=== PATIENT | male | born 1950 | race Caucasian/White ===

== ENCOUNTER 2022-01-22 09:51 | Day surgery (SDC) | payer MEDICARE ==
[2021-12-15 12:15] VITALS: BMI 26.9
[2022-01-22] MEDS ORDERED: Midazolam HCl 2 mg/2 ml Vial ONE (11:43)
[2022-01-22] MEDS ORDERED: fentaNYL Citrate/PF 100 MCG/2 ML SYRINGE ONE (11:44)
[2022-01-22] MEDS ORDERED: PROPOFOL 200 MG/20 ML VIAL ONE (12:00)
[2022-01-22] MEDS ORDERED: ePHEDrine 50 MG/ML VIAL ONE (12:00)
[2022-01-22] MEDS ORDERED: PHENYLEPHRINE-NS 100 MCG/ML 10 ML SYRINGE ONE (12:00)
[2022-01-22] MEDS ORDERED: Ondansetron PF 4 MG/2 ML Vial ONE (12:00)
== END 2022-01-22 14:06 | disposition home or self-care (01) ==
LOC: MRI 09:51
PROVIDERS: ATTEND Neurological Surgery
DX: M50.11 Cervical disc disorder with radiculopathy, high cervical region (principal); M48.02 Spinal stenosis, cervical region; M48.03 Spinal stenosis, cervicothoracic region; M47.26 Other spondylosis with radiculopathy, lumbar region; M51.16 Intervertebral disc disorders with radiculopathy, lumbar region; M48.061 Spinal stenosis, lumbar region without neurogenic claudication; M47.815 Spondylosis without myelopathy or radiculopathy, thoracolumbar region; M47.817 Spondylosis without myelopathy or radiculopathy, lumbosacral region; G47.33 Obstructive sleep apnea (adult) (pediatric); I10 Essential (primary) hypertension; Z79.899 Other long term (current) drug therapy
CPT/HCPCS: 72141; 72148; J2250; J2405; J2704; J3490

== ENCOUNTER 2022-04-03 12:43 | Outpatient (CLI) | payer MEDICARE | END 2022-04-03 12:44 | disposition home or self-care (01) | LOC: TBSIIMAG 12:43 | PROVIDERS: ATTEND Neurological Surgery | DX: M47.26 Other spondylosis with radiculopathy, lumbar region (principal); M50.20 Other cervical disc displacement, unspecified cervical region; M47.812 Spondylosis without myelopathy or radiculopathy, cervical region; Z98.890 Other specified postprocedural states | CPT/HCPCS: 72050; 72110 ==

== ENCOUNTER 2022-05-10 15:16 | Outpatient (CLI) | payer MEDICARE ==
[2022-05-10 15:55] LABS: Hemoglobin 17.4 g/dL (13.5-17.5); Mean Corpuscular HGB CONC 32.5 g/dL (32.0-36.0); Mean Corpuscular Hemoglobin 28.9 pg (27.0-33.0); Mean Platelet Volume 10.6 fl (7.4-10.4); Platelet Count 201 10x3/uL (150-450); RBC Distribution Width 17.8 % (11.5-14.5); Red Blood Cell (RBC) Count 6.02 10x6/uL (4.32-5.72); White Blood Cell (WBC) Count 7.6 10x3/uL (3.5-10.5)
[2022-05-10 16:03] LABS: INR-International Normal Ratio 0.9; PTT 26.6 sec (22.0-33.0); Prothrombin Time 10.1 sec (9.5-12.1)
== END 2022-05-10 15:17 | disposition home or self-care (01) ==
LOC: LABBT 15:16
PROVIDERS: ATTEND Neurological Surgery
DX: Z01.818 Encounter for other preprocedural examination (principal); G95.89 Other specified diseases of spinal cord; M50.01 Cervical disc disorder with myelopathy, high cervical region; M50.021 Cervical disc disorder at C4-C5 level with myelopathy; M50.022 Cervical disc disorder at C5-C6 level with myelopathy
CPT/HCPCS: 85027; 85610; 85730; 93005; 93010

== ENCOUNTER 2022-05-10 15:30 | Inpatient (IN) | payer MEDICARE ==
[2022-05-14 12:23] VITALS: BMI 26.5
[2022-05-17] MEDS ORDERED: Acetaminophen 325 MG TAB PO PRN (06:09)
[2022-05-17] MEDS ORDERED: Acetaminophen/Codeine 30-300mg Tablet PO PRN (06:09)
[2022-05-17] MEDS ORDERED: diphenhydrAMINE 50 MG/ML VIAL IVP PRN (06:09)
[2022-05-17] MEDS ORDERED: Prochlorperazine 10 MG/2 ML VIAL IM PRN (06:09)
[2022-05-17] MEDS ORDERED: Bisacodyl 10 MG SUPP PR PRN (06:09)
[2022-05-17] MEDS ORDERED: Milk Of Magnesia 30 ML UDCUP PO PRN (06:09)
[2022-05-17] MEDS ORDERED: HYDROcodone/Acetaminophen 7.5/325 mg Tablet PO PRN (06:09)
[2022-05-17] MEDS ORDERED: Mag-Al 1200 mg/1200 mg/30 ML UDCUP PO PRN (06:09)
[2022-05-17] MEDS ORDERED: Thrombin 5000 UNITS/5 ML VIAL ONE (06:11)
[2022-05-17] MEDS ORDERED: Neomycin-Polymyxin 1 ML AMP ONE (06:11)
[2022-05-17] MEDS ORDERED: Chloraseptic Spray 180 ml Bottle PO PRN (06:14)
[2022-05-17] MEDS ORDERED: tiZANidine HCl 4 MG TAB PO PRN (06:14)
[2022-05-17] MEDS ORDERED: fentaNYL PF 100 MCG/2 ML SYRINGE ONE (06:31)
[2022-05-17] MEDS ORDERED: CEFAZOLIN 2 GM VIAL ONE (06:50)
[2022-05-17] MEDS ORDERED: Sodium Chloride 0.9% 100 ML ONE (06:50)
[2022-05-17 06:59] LABS: SARS-CoV-2 NAA Rapid Test Not Detected (NotDetected)
[2022-05-17] MEDS ORDERED: ePHEDrine 50 MG/ML VIAL ONE (07:12)
[2022-05-17] MEDS ORDERED: PHENYLEPHRINE-NS 100 MCG/ML 10 ML SYRINGE ONE (07:12)
[2022-05-17] MEDS ORDERED: Glycopyrrolate 0.2 MG/ML 5 ML SYRINGE ONE (07:12)
[2022-05-17] MEDS ORDERED: PROPOFOL 200 MG/20 ML VIAL ONE (07:12)
[2022-05-17] MEDS ORDERED: Dexamethasone 20 MG/5 ML VIAL ONE (07:12)
[2022-05-17] MEDS ORDERED: Lidocaine 1% PF 5 ML VIAL ONE (07:12)
[2022-05-17] MEDS ORDERED: Rocuronium Bromide 10 MG/ML (10ML VIAL) ONE (07:12)
[2022-05-17] MEDS ORDERED: NEOSTIGMINE 3 MG/3 ML SYR 3 MG/3 ML SYRINGE ONE (07:12)
[2022-05-17] MEDS ORDERED: Ondansetron PF 4 MG/2 ML Vial ONE (07:12)
[2022-05-17] MEDS ORDERED: HYDROmorphone 0.5 MG/0.5 ML SYRINGE ONE ×2 (12:37→13:30)
[2022-05-17] MEDS ORDERED: Ondansetron HCl/PF 4 MG/2 ML Vial IVP PRN (12:40)
[2022-05-17] MEDS ORDERED: Promethazine HCl 25 MG/ML VIAL IM PRN (12:40)
[2022-05-17] MEDS ORDERED: HYDROmorphone 2 MG/ML VIAL SLOW IVP PRN (12:40)
[2022-05-17] MEDS ORDERED: Fentanyl 100 MCG/2 ML VIAL ONE (12:46)
[2022-05-17] MEDS ORDERED: Promethazine HCl 25 MG/ML VIAL ONE (13:29)
[2022-05-17] MEDS ORDERED: Midazolam HCl 2 mg/2 ml Vial ONE (13:47)
[2022-05-17] MEDS ORDERED: CEFAZOLIN 2 GM in Sodium Chloride 0.9% 100 ML IVPB SCH (14:00)
[2022-05-17] MEDS: Sodium Chloride 0.9% 1,000 ML IV SCH ×2 (16:56→18:38)
[2022-05-17] MEDS: Amlodipine 10 MG TAB PO SCH (16:57)
[2022-05-17] MEDS: Carvedilol 25 MG TAB PO SCH ×2 (16:57→20:37)
[2022-05-17] MEDS: Ciprofloxacin 500 MG TAB PO SCH ×2 (16:57→20:37)
[2022-05-17] MEDS: Atorvastatin Calcium 20 MG TAB PO SCH (16:57)
[2022-05-17] MEDS: Finasteride 5 MG TAB PO SCH (16:58)
[2022-05-17] MEDS: Ezetimibe 10 MG TAB PO SCH (16:58)
[2022-05-17] MEDS: Lisinopril 10 MG TAB PO SCH ×2 (16:58→20:37)
[2022-05-17] MEDS: Morphine 2 MG/ML VIAL SLOW IVP PRN ×2 (18:38→23:57)
[2022-05-18] MEDS: HYDROcodone/Acetaminophen 10/325 mg Tablet PO PRN ×2 (03:39→09:43)
[2022-05-18] MEDS: Morphine 2 MG/ML VIAL SLOW IVP PRN (04:53)
[2022-05-18 08:42] VITALS: BP 151/74; TEMP 98.4
[2022-05-18] MEDS: Lisinopril 10 MG TAB PO SCH (09:35)
[2022-05-18] MEDS: Amlodipine 10 MG TAB PO SCH (09:35)
[2022-05-18] MEDS: Finasteride 5 MG TAB PO SCH (09:35)
[2022-05-18] MEDS: Ciprofloxacin 500 MG TAB PO SCH (09:35)
[2022-05-18] MEDS: Atorvastatin Calcium 20 MG TAB PO SCH (09:35)
[2022-05-18] MEDS: Ezetimibe 10 MG TAB PO SCH (09:35)
[2022-05-18] MEDS: Carvedilol 25 MG TAB PO SCH (09:36)
[2022-05-18] MEDS: Sodium Chloride 0.9% 1,000 ML IV SCH (09:36)
== END 2022-05-18 15:02 | disposition home or self-care (01) | DRG 473 ==
LOC: SURG A 05-17 05:29 → T4-B 05-17 16:40
PROVIDERS: ADMIT Neurological Surgery; ATTEND Neurological Surgery
PROC: 0RG20A0 Fusion of 2 or more Cervical Vertebral Joints with Interbody Fusion Device, Anterior Approach, Anterior Column, Open Approach (ICD-10-PCS; principal; 2022-05-17)
PROC: 0RB30ZZ Excision of Cervical Vertebral Disc, Open Approach (ICD-10-PCS; 2022-05-17)
DX: M50.01 Cervical disc disorder with myelopathy, high cervical region (principal); M48.061 Spinal stenosis, lumbar region without neurogenic claudication; Z20.822 Contact with and (suspected) exposure to COVID-19; Z87.891 Personal history of nicotine dependence
CPT/HCPCS: C1713; C1768; J1100; J1170; J2250; J2272; J2405; J2550; J2704; J3010; J3490; J7050; U0002